=== PATIENT | male | born 1980 | race Asian ===

== ENCOUNTER 2023-01-03 17:37 | Observation (INO) | payer OTHER ==
[2023-01-03 17:43] VITALS: RESP 18
[2023-01-03] MEDS ORDERED: SODIUM CHLORIDE 1,000 ML IV SCH (18:00)
[2023-01-03 18:31] LABS: BASO % 0.9 % (0-2.0); EOS % 2.3 % (0-4.5); HEMATOCRIT 41.8 % (35.4-49); HEMOGLOBIN 14.2 GM/dL (11.7-16.9); LYMPH % 31.1 % (8-40); MCH 28.6 pg (25.7-33.7); MEAN CELL VOLUME 84.1 fl (80-96); MEAN PLT VOLUME 8.3 fl (7.5-11.1); MONO % 6.7 % (3.8-10.2); PLATELET COUNT 319 10^3/uL (134-434); RBC 4.97 M/mm3 (4.00-5.60); RDW 13.2 % (11.9-15.9); WHITE BLOOD COUNT 9.4 K/mm3 (4.0-10.0)
[2023-01-03 18:38] LABS: INR 1.03 (0.83-1.09); PROTHROMBIN TIME (PATIENT) 11.9 SEC (9.7-13.0)
[2023-01-03 18:40] LABS: ACTIVATED PTT 36.2 SECONDS (25.2-36.5)
[2023-01-03 19:08] LABS: POTASSIUM 4.4 mmol/L (3.5-5.1)
[2023-01-03 19:14] LABS: CALCIUM 8.8 mg/dL (8.5-10.1)
[2023-01-03 19:16] LABS: BLOOD UREA NITROGEN 13.6 mg/dL (7-18)
[2023-01-03 19:20] LABS: BILIRUBIN,TOTAL 0.4 mg/dL (0.2-1); TOT PROT 7.3 g/dl (6.4-8.2)
[2023-01-03 20:41] LABS: PH,URINE 5.5 (5.0-8.0); URINE APPEARANCE CLEAR; URINE BILIRUBIN NEGATIVE (NEGATIVE); URINE COLOR YELLOW; URINE GLUCOSE (UA) NEGATIVE (NEGATIVE); URINE KETONE TRACE (NEGATIVE); URINE LEUK ESTERASE NEGATIVE (NEGATIVE); URINE NITRITE NEGATIVE (NEGATIVE); URINE PROTEIN NEGATIVE (NEGATIVE); URINE UROBILINOGEN 0.2 mg/dL (0.2-1.0)
[2023-01-03] MEDS ORDERED: DOCUSATE SODIUM 100 MG CAPSULE (FP) PO PRN (23:00)
[2023-01-03] MEDS ORDERED: ACETAMINOPHEN 1000 MG/100 ML BAG IVPB PRN (23:03)
[2023-01-04 01:01] VITALS: BMI 37.3
[2023-01-04 08:56] LABS: BASO % 0.6 % (0-2.0); EOS % 3.6 % (0-4.5); HEMATOCRIT 39.9 % (35.4-49); HEMOGLOBIN 12.9 GM/dL (11.7-16.9); LYMPH % 44.1 % (8-40); MCH 27.9 pg (25.7-33.7); MCHC 32.4 g/dl (32.0-35.9); MEAN PLT VOLUME 8.6 fl (7.5-11.1); NEUT % 43.7 % (42.8-82.8); PLATELET COUNT 272 10^3/uL (134-434); RBC 4.64 M/mm3 (4.00-5.60); RDW 13.1 % (11.9-15.9); WHITE BLOOD COUNT 6.5 K/mm3 (4.0-10.0)
[2023-01-04 09:18] LABS: POTASSIUM 4.1 mmol/L (3.5-5.1)
[2023-01-04 09:22] VITALS: TEMP 97.5
[2023-01-04 09:26] LABS: BLOOD UREA NITROGEN 11.8 mg/dL (7-18); CALCIUM 8.4 mg/dL (8.5-10.1); MAGNESIUM 2.2 mg/dL (1.8-2.4)
[2023-01-04 09:30] LABS: CREATININE 0.8 mg/dL (0.55-1.3); PHOSPHOROUS 3.3 mg/dL (2.5-4.9)
[2023-01-04] MEDS ORDERED: LISINOPRIL 20 MG TABLET PO SCH (10:00)
[2023-01-04 12:39] VITALS: BP 135/84; PULSE 66
[2023-01-04] MEDS ORDERED: ROSUVASTATIN CA 10 MG TABLET PO SCH (22:00)
== END 2023-01-04 14:40 | disposition home or self-care (01) ==
LOC: JER 17:37 → JERBED 19:54 → J4W 01-04 00:25
PROVIDERS: ADMIT Internal Medicine; ATTEND Internal Medicine
DX: E78.5 Hyperlipidemia, unspecified (principal); E66.9 Obesity, unspecified; I10 Essential (primary) hypertension; F17.200 Nicotine dependence, unspecified, uncomplicated; Z88.8 Allergy status to other drugs, medicaments and biological substances
CPT/HCPCS: 36415; 70450-TC; 80048; 80053; 80061; 81003; 83036; 83735; 84100; 84484; 85025; 85610; 85730; 86850; 86900; 86901; 93005; 93010; 99285-25; G0378